=== PATIENT | male | born 1965 | race Caucasian/White ===

== ENCOUNTER 2017-07-04 17:52 | Emergency (ER) | payer OTHER ==
[~2017-07-04] VITALS: Ht 185.4 cm; Wt 105.0 kg
[2017-07-04 17:54] VITALS: BP 199/113; PULSE 71; RESP 14; TEMP 98.6; O2SAT 99
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
[2017-07-04] MEDS ORDERED: PROPARACAINE HCL 0.5% OPHT SOLN 15 ML BTL EACH EYE ONE (18:15)
[2017-07-04] MEDS ORDERED: IBUPROFEN 600 MG TAB PO ONE (18:45)
[2017-07-04] MEDS ORDERED: ERYTHROMYCIN 0.5% OPTH OINT 3.5 GM TUBO RIGHT EYE ONE (18:45)
[2017-07-04] MEDS ORDERED: ERYTOIN10 RIGHT EYE (18:49)
[2017-07-04 19:10] VITALS: BP 154/91
== END 2017-07-04 19:28 | disposition home or self-care (01) ==
LOC: NEPE 17:52
DX: S05.31XA Ocular laceration without prolapse or loss of intraocular tissue, right eye, initial encounter (principal); W22.8XXA Striking against or struck by other objects, initial encounter; Y93.89 Activity, other specified
CPT/HCPCS: 99283